=== PATIENT | male | born 1945 | race Caucasian/White ===

== ENCOUNTER → 2016-09-29 | Outpatient (CLI) | payer MEDICARE ==
[~2016-09-29] MED LIST: ADVAIR 250-501 EACH INH; ALLEGRA180 MG PO; AMARYL2 MG PO; DELTASONE10 MG PO; FLOMAX0.4 MG PO; GLUCOPHAGE500 MG PO; LASIX40 MG PO; LEVOCETIRIZINE D5 MG PO; MOBIC7.5 MG PO; NORCO 5-325 TA1 EACH PO; OXYGEN M-15 INH; PRAVACHOL40 MG PO; PRILOSEC OTC20 MG PO; PROSCAR5 MG PO; PROVENTIL HFA6.7 GM INH; RANEXA1000 MG PO; TRIAMCINOLONE454 GM TOP; XARELTO20 MG PO; ZOFRAN4 MG PO; ZOLOFT100 MG PO
== END | disposition disaster alternative care site (69) ==
LOC: GAMB 13:15
DX: R06.9 Unspecified abnormalities of breathing (principal); I10 Essential (primary) hypertension; J45.909 Unspecified asthma, uncomplicated; Z79.52 Long term (current) use of systemic steroids; Z79.82 Long term (current) use of aspirin; Z79.899 Other long term (current) drug therapy; Z88.6 Allergy status to analgesic agent
CPT/HCPCS: A0422; A0425; A0427; J2405; J2930

== ENCOUNTER → 2016-10-29 | Outpatient (CLI) | payer MEDICARE, OTHER ==
--- NOTE | ~2016-10-29 | CON ---
PATIENT'S NAME: VASU CHRISTOPHER [facility] AGE: 71 Y [address] ROOM: [place] [address] LOCATION: GETS ADMIT DATE: 10/29/2016 Consultation DISCHARGE DATE: FAMILY PHYSICIAN: Aram Lira MD ATTENDING PHYSICIAN: Robson Bell DATE OF CONSULTATION: 10/29/2016 Urodynamic Interpretation. HISTORY: Vasu is seen in followup of his recent diagnosis of acute renal failure secondary to chronic urinary retention. He had obstructive nephropathy. He had 1900 mL in his bladder at the time of catheter placement. He has been left to catheter drainage. He presents at this time for urodynamic testing. Sensation appears to be intact upon filling. He felt like he had to void at 361 mL of filling on his cystometrogram. There were no obvious uninhibited contractions. As far as his uroflow was concerned, he appeared to leak around the catheter. He generated low pressures. He was able to demonstrate a small amount of uroflow with very low detrusor pressures. We will discuss continuous catheter drainage versus self intermittent catheterization. We will also evaluate for the possibility of transurethral resection, but I suspect, based on the severity of his presentation and his current urodynamic studies, that he will not do well with that. Specifically, when he was admitted, he had a creatinine of 8.6. He has multiple other risk factors for chronic renal insufficiency. However, with continuous catheter drainage, his creatinine dropped to 1.39. IMPRESSION: Hypotonic bladder with chronic retention. PLAN: As above. ROBSON BELL MD [facility]/modl PATIENT'S NAME: VASU CHRISTOPHER [facility] AGE: 71 Y [address] ROOM: [place] [address] LOCATION: GETS ADMIT DATE: 10/29/2016 Consultation DISCHARGE DATE: FAMILY PHYSICIAN: Aram Lira MD ATTENDING PHYSICIAN: Robson Bell /[id number] CC: Aram Lira MD d: 11/01/16 1855 t: 11/02/16 1024, CONSULTATION REPORT
== END | disposition disaster alternative care site (69) ==
LOC: GETS 07:43
PROC: 4A0D7BZ Measurement of Urinary Pressure, Via Natural or Artificial Opening (ICD-10-PCS; principal; 2016-10-29)
PROC: 4A0 Measurement and Monitoring, Physiological Systems, Measurement (ICD-10-PCS; principal; 2016-10-29)
DX: N31.2 Flaccid neuropathic bladder, not elsewhere classified (principal); R33.8 Other retention of urine

== ENCOUNTER 2016-11-08 11:32 | Observation (INO) | payer MEDICARE, OTHER ==
[~2016-11-08] VITALS: Ht 188 cm; Wt 133.0 kg
--- NOTE | ~2016-11-08 | CON ---
PATIENT'S NAME: ANUPAM CHRISTOPHER [facility] AGE: 71 Y [address] ROOM: [place] [address] LOCATION: [facility] [place] ADMIT DATE: 11/08/2016 Consultation DISCHARGE DATE: FAMILY PHYSICIAN: Aram Lira MD ATTENDING PHYSICIAN: Robson Louis DATE OF CONSULTATION: 11/08/2016 REFERRING PHYSICIAN: BETSY WHITE MD CHIEF COMPLAINT/REASON FOR CONSULTATION: Medical management following cystoscopy with TURP. HISTORY OF PRESENTING ILLNESS: This 71-year-old white male with previous history of diabetes mellitus type 2 and hypertension was admitted to [facility] today by Dr. Louis for planned cystoscopy and TURP. This was performed, secondary to hypotonic bladder with chronic retention. Postoperatively, he was transferred to the floor, and I have been asked to assist in medical management. Currently, he reports feeling "good." He does complain of a little bit of tenderness in the left groin, but relates that it is tolerable. He denies fevers, chills, or sweats. He denies headaches and denies any nausea. He denies chest pain or significant shortness of breath, and no abdominal pain. He does report feeling a little bit "hungry." ALLERGIES: CODEINE CAUSES A RASH. PAST MEDICAL HISTORY: Illnesses: 1. Coronary artery disease. 2. Diabetes mellitus type 2. 3. Essential hypertension. 4. Degenerative disk disease of the lumbar spine. 5. Asthma, intrinsic. 6. Depression. 7. Developmental delay. 8. Chronic kidney disease, stage 3. 9. Moderate protein-calorie malnutrition. 10. Renal artery stenosis. CURRENT MEDICATIONS: 1. Metformin 500 mg p.o. b.i.d. 2. Albuterol HFA 2 puffs p.o. q.4 hours p.r.n. shortness of breath. 3. Aga 180 mg p.o. daily. PATIENT'S NAME: ANUPAM CHRISTOPHER [facility] AGE: 71 Y [address] ROOM: [place] [address] LOCATION: [facility] [place] ADMIT DATE: 11/08/2016 Consultation DISCHARGE DATE: FAMILY PHYSICIAN: Aram Lira MD ATTENDING PHYSICIAN: Robson Louis 4. Proscar 5 mg p.o. daily. 5. Advair 250/50 one puff p.o. b.i.d. 6. Amaryl 2 mg p.o. q.a.m. 7. Levocetirizine 5 mg p.o. q.h.s. 8. Omeprazole 20 mg p.o. q.a.m. 9. Pravastatin 40 mg p.o. q.h.s. 10. Prednisone 10 mg p.o. daily. 11. Ranexa 1000 mg p.o. b.i.d. 12. Xarelto 20 mg p.o. daily (on hold). 13. Zoloft 100 mg p.o. q.h.s. 14. Flomax 0.4 mg p.o. q.h.s. FAMILY HISTORY: Significant for emphysema in his father. Father also suffered from heart disease. Mother had diabetes. SOCIAL HISTORY: He is , lives with his girlfriend here in [place]. He has a 40-plus- pack-year history of smoking tobacco. REVIEW OF SYSTEMS: As per HPI. All other organ systems reviewed and are negative. OBJECTIVE: VITAL SIGNS: Temperature 98.5, pulse 75, respirations 18, blood pressure 157/70. GENERAL: He is anxious, but cooperative, lying in the bed, in no acute distress. He is a little hard of hearing. SKIN: Supple, pink, warm, and dry. No obvious rashes. HEENT: Otherwise, normocephalic. Sclerae nonicteric. Pupils are equal, round, and reactive to light and accommodation. Extraocular movements appear intact. Nasal turbinates normal in appearance. Oropharynx clear. Mucous membranes are pink and moist. Dentition is in poor repair. NECK: Supple, plethoric, and obese. No masses. No adenopathy. No thyromegaly. No JVD. CHEST: Chest wall is symmetrical. HEART: Regular without murmurs. LUNGS: Diminished and coarse with long expiratory phase. No wang wheezes. ABDOMEN: Soft, obese, nontender. Bowel sounds present. No masses or hepatosplenomegaly. : Not done. RECTAL: Not done. EXTREMITIES: Display trace pitting edema. No cyanosis. NEUROLOGIC: Mentation is slow. There are no focal deficits. PATIENT'S NAME: ANUPAM CHRISTOPHER [facility] AGE: 71 Y [address] ROOM: [id number] [place] [address] LOCATION: [facility] [place] ADMIT DATE: 11/08/2016 Consultation DISCHARGE DATE: FAMILY PHYSICIAN: Aram Lira MD ATTENDING PHYSICIAN: Robson Louis LABORATORY AND X-RAY DATA: CBC showed a white blood cell count 8.8, hemoglobin is 12.6, hematocrit 38.1, platelets 164. Chemistries reveal a BUN and creatinine 14 and 1.0, respectively. Sodium and potassium 141 and 3.9, chloride and CO2 are 105 and 31, calcium is 8.4, AST and ALT 21 and 33, bilirubin is 0.8, glucose was 116. ASSESSMENT AND PLAN: 1. Diabetes mellitus type 2. We will hold the metformin and manage with Accu-Cheks and sliding scale insulin while he is inpatient. We will plan to transition back to his home oral hypoglycemic regimen at discharge. 2. Coronary artery disease, currently clinically asymptomatic and stable. Continue with statin therapy and aspirin therapy. 3. Deep venous thrombosis with history of pulmonary embolism (recent). Historically stable on Xarelto. Xarelto is currently on hold. We will plan to resume when feasible and when okay with Dr. Louis. 4. Essential hypertension. Suboptimal control. We will monitor the trend and make adjustments if necessary. 5. Obstructive sleep apnea by history. He is chronically oxygen-dependent at night. We will plan to continue with supplemental oxygen and encourage good pulmonary hygiene. 6. Renal artery stenosis. His renal function is fairly well preserved. We will monitor. 7. Moderate protein-calorie malnutrition. Encourage balanced dietary intake. 8. Morbid obesity. We will need to work on some long-term strategies for weight loss including calorie reduction, increased exercise, etc. 9. Deep venous thrombosis prophylaxis. We will follow the VTE protocol. 10. Hypotonic bladder with urinary retention, status post cystoscopy and TURP. Clinically stable. Continue continuous bladder irrigation and follow up by Urology. MD SARIKA GARCIA/aparna /[id number] d: 11/09/16313 t: 11/10/162017, CONSULTATION REPORT
--- NOTE | ~2016-11-08 | OR ---
PATIENT'S NAME: ANUPAM CHRISTOPHER [facility] AGE: 71 Y [address] ROOM: [address] [address] [place] [facility] [place]: 11/08/2016 OR/Procedure Report DISCHARGE DATE: FAMILY PHYSICIAN: Aram Lira MD ATTENDING PHYSICIAN: Robson Bell SURGEON: Robson Bell MD GUEST SERVICE SUPERVISOR: DATE OF PROCEDURE: 11/08/2016 PREOPERATIVE DIAGNOSES: 1. Benign prostatic hypertrophy, bladder obstruction. 2. Urinary retention. 3. Obstructive nephropathy with acute renal failure - resolved. POSTOPERATIVE DIAGNOSES: 1. Benign prostatic hypertrophy, bladder obstruction. 2. Urinary retention. 3. Obstructive nephropathy with acute renal failure - resolved, with pathology pending. PROCEDURES: Cystoscopy and transurethral resection of the prostate. ANESTHESIA: Regional. INDICATION: This is a 71-year-old gentleman, who was admitted last month with acute renal failure. He had associated obstructive nephropathy. He had almost 2 L of residual and a creatinine of 8.6. He has been left to catheter drainage. His creatinine is dropped down nicely. His creatinine is actually 1.0 today with a GFR greater than 60. Importantly, that is with catheter drainage. He underwent outpatient cystoscopy and urodynamic testing. Residual detrusor function is marginal at best. He was counseled regarding intermittent catheterization versus suprapubic tube versus a Berumen versus a transurethral resection. He understands the transurethral resection may not provide enough drainage simply because of the underlying detrusor function. However, he is adamant that he is not going to have a suprapubic tube. He has been wearing a catheter and has urethral erosion. He is not reliable for self intermittent catheterization. Per his preference, we are going to go ahead and open up his prostatic urethra and hopefully he will have enough residual function to empty well enough to preserve his renal function. It is encouraging that his renal function bounce back well. He has multiple other risk factors including lvo-tylyhzh-[id number] diabetes, coronary artery disease, history of DVTs and PEs, etc. PROCEDURE IN DETAIL: Having obtained his informed consent, the patient was taken to the operating room. He was prepped and draped sterilely and in PATIENT'S NAME: ANUPAM CHRISTOPHER [facility] AGE: 71 Y [address] ROOM: [address] [address] [place] [facility] [place]: 11/08/2016 OR/Procedure Report DISCHARGE DATE: FAMILY PHYSICIAN: Aram Lira MD ATTENDING PHYSICIAN: Robson Bell lithotomy position. A spinal block was placed. A resectoscope was placed. He has previously undergone the diagnostic cystoscopy. Bladder examination is as previous. He has some chronic catheter changes. He has cellule and small diverticula formation from his chronic outlet obstruction. Orifices are close to, but not dangerously intimate with the middle lobe. I started with the loop resection. He has a history of an elevated PSA. With all of his comorbidities, prostate cancer should not represent a significant clinical threat to him, but we will get some tissue for pathology. I took down his middle lobe. We then worked out on the lateral lobes. Those chips were all evacuated. I then switched to a button electrode and further button vaporized his prostate. At the conclusion, we have him opened up nicely. We have good hemostasis. A 24-Persian 3-way and a B and O suppository were placed. The case was concluded. The patient tolerated the procedure well. Blood loss was less than 50 mL. The above-noted specimens were sent. The patient returned to recovery awake and stable condition. ROBSON BELL MD [facility]/modl /[id number] CC: MD Gokul Beltre MD d: 11/08/16 2218 t: 11/21/16 1302, OPERATIVE SUMMARY
--- NOTE | ~2016-11-08 | HP ---
PATIENT'S NAME: VASU CHRISTOPHER [facility] AGE: 71 Y [address] ROOM: [place] [address] LOCATION: [facility] ADMIT DATE: 11/08/2016 History & Physical DISCHARGE DATE: FAMILY PHYSICIAN: Aram Lira MD ATTENDING PHYSICIAN: Robson Bell DATE OF SERVICE: 11/08/2016 CHIEF COMPLAINT: Urinary retention. HISTORY OF PRESENT ILLNESS: This is a 71-year-old gentleman admitted last month with acute renal failure. He had obstructive nephropathy. He had almost 2 L of residual and a creatinine of 8.6. He was left to catheter drainage. His creatinine dropped down to 1.39. He had a CT scan which demonstrated some mild dilation and a thickened bladder wall. He has a remote history of BPH and an elevated PSA. I did a biopsy on his prostate over 10 years ago, and he was supposed to be on combination therapy at that time. Prostate volume at that time was approximately 52 mL. He underwent cystoscopy and urodynamic testing. Residual detrusor function is an issue. Vasu and his significant other understand that we cannot guarantee that he will be able to empty his bladder well enough after TUR. Even if we relieve the obstruction, his residual detrusor function may be inadequate. However, he is adamant against self intermittent catheterization. He absolutely refuses a suprapubic tube. He does not want to continue with his Berumen catheter. Therefore, he presents today for cystoscopy, transurethral resection, and vaporization of his prostate with the understanding that he may still end up needing a catheter. He understands we need to protect his kidney function. PAST MEDICAL HISTORY: He had the prior prostate biopsy. Based on his comorbidities, prostate cancer represents minimal threat to him at this point. We will have some tissue for analysis. He has had a history of DVT, asthma, diabetes, and coronary artery disease. MEDICATIONS: He is on multiple medications. His Xarelto has been on hold. ALLERGIES: CODEINE. REVIEW OF SYSTEMS: PATIENT'S NAME: VASU CHRISTOPHER [facility] AGE: 71 Y [address] ROOM: [place] [address] LOCATION: [facility] ADMIT DATE: 11/08/2016 History & Physical DISCHARGE DATE: FAMILY PHYSICIAN: Aram Lira MD ATTENDING PHYSICIAN: Robson Bell He has had some itching as well as arthritic complaints. He has had the urinary retention. He has chronic wheezing. He denies any chest pain. SOCIAL HISTORY: He is retired. He lives here in [place]. As mentioned, he does have a significant other. He has a remote history of smoking. He does not drink. PHYSICAL EXAMINATION: GENERAL: Vasu appears his usual self. He is somewhat unkempt. VITAL SIGNS: Blood pressure 136/76 with a pulse of 82. He 6 feet 2 inches and 283 pounds. HEART: Currently, regular. LUNGS: Coarse. ABDOMEN: Remarkable for obesity. GENITOURINARY: Exam reveals his indwelling Berumen catheter and is otherwise as noted above with his cystoscopy and urodynamics. EXTREMITIES: No clubbing, cyanosis, or edema. IMPRESSION: Chronic urinary retention with obstructive nephropathy with underlying benign prostatic hypertrophy and bladder outlet obstruction. PLAN: Cystoscopy and transurethral resection of prostate. The patient understands the plan as well as the attendant risks and benefits. Importantly, and as stressed above, he understands that this may not provide adequate emptying and he still may have to consider some type of catheter drainage. He has his questions answered, and he wishes to proceed. ROBSON BELL MD [facility]/modl /[id number] CC: Aram Lira MD D: [id number] T: 300 HISTORY & PHYSICAL
[~2016-11-08 11:32] MED LIST changes: -LASIX40 MG PO; -MOBIC7.5 MG PO; -NORCO 5-325 TA1 EACH PO; -TRIAMCINOLONE454 GM TOP; -ZOFRAN4 MG PO
[2016-11-08 12:24] LABS: BASOPHIL # 0.1 K/uL (0.0-0.2); BASOPHIL % 0.6 %; EOSINOPHIL # 0.3 K/uL (0.0-0.5); EOSINOPHIL % 3.5 %; HEMATOCRIT 38.1 % (37.0-53.0); HEMOGLOBIN 12.6 g/dL (11.0-16.0); IMMATURE GRANULOCYTE # 0.1 K/uL (0.0-0.3); IMMATURE GRANULOCYTE % 0.8 %; LYMPHOCYTE # 0.8 K/uL (0.8-4.0); MCH 31.4 pg (27.0-34.0); MCHC 33.1 gm/dL (32.0-36.5); MONOCYTE # 0.8 K/uL (0.0-1.0); MONOCYTE % 8.7 %; MPV 9.7 fl (9.4-12.4); NEUTROPHIL # (ANC) 6.8 K/uL (1.4-9.0); NEUTROPHIL % 77.4 %; NRBC % 0 /100WBC (0-0.00); PLATELET COUNT 164 K/uL (150-450); RBC 4.01 M/uL (3.50-5.50); RDW-CV 13.7 % (11.9-14.6); WBC 8.8 K/uL (4.0-11.0)
[2016-11-08 12:39] LABS: ALBUMIN 3.2 gm/dL (3.5-5.0); ALK PHOS 50 IU/L (33-138); ALT 33 IU/L (12-78); ANION GAP 8.9 (10.0-19.0); AST 21 IU/L (10-40); BLOOD UREA NITROGEN 14 mg/dL (6-24); CALCIUM 8.4 mg/dL (8.5-10.5); CHLORIDE 105 mMol/L (96-110); CO2 31 mMol/L (22-32); ESTIMATED GFR (MDRD EQUATION) > 60; POTASSIUM 3.9 mMol/L (3.7-5.1); SODIUM 141 mMol/L (135-145); TOTAL BILIRUBIN 0.8 mg/dL (0.0-1.5); TOTAL PROTEIN 6.5 g/dL (6.0-8.4)
--- NOTE | 2016-11-08 16:52 | NUR ---
CBI IN PACU = 1200 ML IN. 1200 ML URINE OUTPUT.
--- NOTE | 2016-11-09 01:23 | NUR ---
Cont on CBI post TURP. Urine pink in color with small blood clots. VSS. Denies pain. Did have some blood around urinary meatus at HS. Cath cares done and neosporin applied as ordered. Cont on 1/2 NS at 100mls/hr. Wears 3L O2 via NC at HS per home settings. Dr. Herrera rounded on patient last HS. Dc'd Metformin. Started on sliding scale insulin. BS at HS 251. Given 6 units of novolog. Cont on bedrest per admission orders.
[2016-11-09 05:03] LABS: BASOPHIL % 0.3 %; EOSINOPHIL # 0.2 K/uL (0.0-0.5); EOSINOPHIL % 2.4 %; HEMATOCRIT 34.2 % (37.0-53.0); IMMATURE GRANULOCYTE # 0.1 K/uL (0.0-0.3); IMMATURE GRANULOCYTE % 0.9 %; LYMPHOCYTE # 0.6 K/uL (0.8-4.0); LYMPHOCYTE % 6.7 %; MCH 30.8 pg (27.0-34.0); MCHC 32.2 gm/dL (32.0-36.5); MCV 95.8 fl (83.0-98.0); MONOCYTE # 0.7 K/uL (0.0-1.0); MONOCYTE % 7.8 %; MPV 10.1 fl (9.4-12.4); NEUTROPHIL # (ANC) 7.6 K/uL (1.4-9.0); NEUTROPHIL % 81.9 %; NRBC % 0 /100WBC (0-0.00); PLATELET COUNT 161 K/uL (150-450); RBC 3.57 M/uL (3.50-5.50); RDW-CV 13.7 % (11.9-14.6); WBC 9.2 K/uL (4.0-11.0)
[2016-11-09 05:20] LABS: ANION GAP 9.1 (10.0-19.0); BLOOD UREA NITROGEN 15 mg/dL (6-24); CALCIUM 8.1 mg/dL (8.5-10.5); CHLORIDE 105 mMol/L (96-110); CO2 30 mMol/L (22-32); CREATININE 0.9 mg/dL (0.6-1.3); ESTIMATED GFR (MDRD EQUATION) > 60; SODIUM 140 mMol/L (135-145)
[2016-11-09 05:21] LABS: POTASSIUM 4.1 mMol/L (3.7-5.1)
--- NOTE | 2016-11-09 15:43 | NUR ---
Significant event: CBI continues at a slow rate urine pale pink to clear. Denies pain. Accuchecks 103 and 108. No insulin required as per order.
[2016-11-09] MEDS ORDERED: LASIX40 MG PO (18:21)
[2016-11-09] MEDS ORDERED: MOBIC7.5 MG PO (18:21)
[2016-11-09] MEDS ORDERED: TRIAMCINOLONE454 GM TOP (18:23)
[2016-11-09] MEDS ORDERED: NORCO 5-325 TA1 EACH PO (18:26)
--- NOTE | 2016-11-10 04:54 | NUR ---
Significant Event: Sleeping well tonight. Afebrile, all other VSS. Denies pain. CBI continues at slow rate, urine light yellow in color. Up to chair with 1 assist. Drinking well, eating without nausea or vomting. PIV patent and saline locked. HS accucheck was 152 and 2 units Novolog given per SS. COWLITZ bilaterally. Pleasant and cooperative with cares. Follow up:
[2016-11-10] MEDS ORDERED: ZOFRAN4 MG PO (15:18)
--- NOTE | 2016-11-10 16:14 | NUR ---
Afebrile, VSS. CBI and Cath dc'd this am @ 0915. Patient reported feeling bloated @ 1230 and unable to void. 250ml emesis around 1300. Patient given Zofran at 1320. Patient did not c/o pain at all during stay. patient bladder scanned around 1300, reading 374ml residual. Berumen placed at 1400 per order. Patient's urine a dark yellow with small clots and sedimentation present. Patient dismissed from hospital at 1550 after being educated on at home cath cares.
--- NOTE | 2016-11-10 18:48 | NUR ---
ASSESSMENT FINDINGS AND CHARTING BY Susanne CARD HAVE BEEN REVIEWED AND AGREE WITH FINDINGS.
== END 2016-11-10 15:50 | disposition disaster alternative care site (69) ==
LOC: GPOC 11:32 → GMSU 11:32 → GPOC 15:01 → GMSU 11-10 15:50
PROVIDERS: ADMIT Urology
PROC: 0VB08ZZ Excision of Prostate, Via Natural or Artificial Opening Endoscopic (ICD-10-PCS; principal; 2016-11-08)
DX: N13.8 Other obstructive and reflux uropathy (principal); R33.8 Other retention of urine; M19.90 Unspecified osteoarthritis, unspecified site; J45.909 Unspecified asthma, uncomplicated; K21.9 Gastro-esophageal reflux disease without esophagitis; I25.10 Atherosclerotic heart disease of native coronary artery without angina pectoris; E11.22 Type 2 diabetes mellitus with diabetic chronic kidney disease; I12.9 Hypertensive chronic kidney disease with stage 1 through stage 4 chronic kidney disease, or unspecified chronic kidney disease; N18.3 Chronic kidney disease, stage 3 (moderate); M51.36 Other intervertebral disc degeneration, lumbar region; F32.9 Major depressive disorder, single episode, unspecified; R62.50 Unspecified lack of expected normal physiological development in childhood; E44.0 Moderate protein-calorie malnutrition; I70.1 Atherosclerosis of renal artery; G47.33 Obstructive sleep apnea (adult) (pediatric); E66.01 Morbid (severe) obesity due to excess calories; Z68.38 Body mass index [BMI] 38.0-38.9, adult; Z86.711 Personal history of pulmonary embolism; Z86.718 Personal history of other venous thrombosis and embolism; Z79.899 Other long term (current) drug therapy; Z98.890 Other specified postprocedural states; Z88.5 Allergy status to narcotic agent
CPT/HCPCS: G0378; J1720; J2001; J2405; J7030; J7512

== ENCOUNTER 2016-11-20 13:20 | Emergency (ER) | payer MEDICARE, OTHER ==
--- NOTE | ~2016-11-20 | ER ---
PATIENT'S NAME: [facility] AGE: 71 Y [address] ROOM: [place] [address] LOCATION: [facility] ADMIT DATE: 11/20/2016 ER/Outpatient Report DISCHARGE DATE: 11/20/2016 FAMILY PHYSICIAN: Aram Lira MD ATTENDING PHYSICIAN: Leo Pyle Time of Arrival: 1340 hours. Time of Evaluation: 1340 hours. CHIEF COMPLAINT: Blood in urine. HISTORY OF PRESENT ILLNESS: The patient states today he has had bright red blood from his urine. States he had blood in his urine since the catheter was removed on 11/17/2016, but it had cleared up within 24 hours and then today returned as a bright red blood. He is feeling weak and slightly dizzy. He has some mild discomfort when he urinates but urinating without any trouble, has not felt feverish or chilled, did have a normal bowel movement today. He has not been nauseated. No vomiting. ALLERGIES: CODEINE. MEDICATIONS: On the chart and reviewed by me. PAST MEDICAL HISTORY: Urinary retention, BPH, noninsulin dependent diabetes, heart disease, hypertension, asthma, coronary artery disease, pulmonary emboli. PAST SURGICAL HISTORY: Heart cath with stents, prostate surgery. He had prostate surgery in October according to his significant other and he has been having problems urinating off and on ever since. Has had to have a catheter off and on since surgery. SOCIAL HISTORY: Denies use of tobacco, drugs, or alcohol. REVIEW OF SYSTEMS: All negative other than those mentioned in the HPI. PHYSICAL EXAMINATION: VITAL SIGNS: He weighed 134.1 kg, blood pressure is 115/73, pulse of 80, respirations 18, temperature of 97.5, O2 saturation was 95% on room air. PATIENT'S NAME: [facility] AGE: 71 Y [address] ROOM: [place] [address] LOCATION: [facility] ADMIT DATE: 11/20/2016 ER/Outpatient Report DISCHARGE DATE: 11/20/2016 FAMILY PHYSICIAN: Aram Lira MD ATTENDING PHYSICIAN: Leo Pyle GENERAL: He is awake, alert, and oriented x4. SKIN: [place], warm, and dry. RESPIRATIONS: Even and nonlabored. Lung sounds were clear throughout. HEART: Regular rate and rhythm. ABDOMEN: Soft, nondistended. Bowel sounds are present. LABORATORY DATA AND X-RAYS: Lab work was drawn. CBC shows a white count of 9.7, hemoglobin is 12.2 with hematocrit of 37.1. Chem panel is within normal limits. BUN is 19 with a creatinine of 1.1. GFR 60, lactate was 2.2. Procalcitonin was negative. The patient was able to urinate. Clean-catch UA was sent down, does show 500 leukocytes, negative nitrites, white blood cells were 5 to 10 with negative bacteria. The patient was monitored, did not have any increase in pain or discomfort. He was able to urinate again of 300 mL. The patient was reviewed with Dr. Pyle. IMPRESSION: Hematuria. PLAN: Home, rest, fluids. Continue his current medications. Follow up with Dr. Louis within the next 2 to 3 days or return to the ER if he develops difficulty urinating. He verbalized understanding. ALFREDO SCHMIDT APRN FOR DO ROXANNE SAPP/aparna /[id number] d: 11/20/162199 t: 11/24/16 0649, OUTPATIENT REPORT
[~2016-11-20 13:20] MED LIST changes: +LASIX40 MG PO; +MOBIC7.5 MG PO; +NORCO 5-325 TA1 EACH PO; +TRIAMCINOLONE454 GM TOP; +ZOFRAN4 MG PO
[2016-11-20 14:28] LABS: BASOPHIL # 0.1 K/uL (0.0-0.2); BASOPHIL % 0.5 %; EOSINOPHIL # 0.2 K/uL (0.0-0.5); EOSINOPHIL % 2.3 %; HEMATOCRIT 37.1 % (37.0-53.0); HEMOGLOBIN 12.2 g/dL (11.0-16.0); IMMATURE GRANULOCYTE # 0.1 K/uL (0.0-0.3); IMMATURE GRANULOCYTE % 1.2 %; LYMPHOCYTE # 0.5 K/uL (0.8-4.0); LYMPHOCYTE % 5.1 %; MCH 31.1 pg (27.0-34.0); MCHC 32.9 gm/dL (32.0-36.5); MCV 94.6 fl (83.0-98.0); MONOCYTE # 0.7 K/uL (0.0-1.0); MONOCYTE % 6.9 %; MPV 9.6 fl (9.4-12.4); NEUTROPHIL # (ANC) 8.2 K/uL (1.4-9.0); NRBC % 0 /100WBC (0-0.00); RBC 3.92 M/uL (3.50-5.50); RDW-CV 13.9 % (11.9-14.6); WBC 9.7 K/uL (4.0-11.0)
[2016-11-20 14:30] LABS: BILIRUBIN URINE NEGATIVE (NEGATIVE); BLOOD URINE 250 /UL (NEGATIVE); COLOR URINE RED (YELLOW); GLUCOSE URINE NEGATIVE (NEGATIVE); KETONE URINE NEGATIVE (NEGATIVE); LEUKOCYTES URINE 500 /UL (NEGATIVE); NITRITE URINE NEGATIVE (NEGATIVE); PROTEIN URINE 100 mg/dL (NEGATIVE); TURBIDITY URINE 3+ (CLEAR); UROBILINOGEN URINE NORMAL (NORMAL)
[2016-11-20 14:33] LABS: PLATELET COUNT 202 K/uL (150-450)
[2016-11-20 14:45] LABS: INR - (THERAPEUTIC) 1.08 (0.92-1.07); PROTIME 11.4 SECONDS (9.8-11.4); PTT 29 SECONDS (25-32)
[2016-11-20 14:50] LABS: ALBUMIN 3.3 gm/dL (3.5-5.0); ALK PHOS 53 IU/L (33-138); ALT 29 IU/L (12-78); ANION GAP 11.1 (10.0-19.0); AST 19 IU/L (10-40); BLOOD UREA NITROGEN 19 mg/dL (6-24); CALCIUM 8.5 mg/dL (8.5-10.5); CHLORIDE 101 mMol/L (96-110); CO2 32 mMol/L (22-32); CREATININE 1.1 mg/dL (0.6-1.3); ESTIMATED GFR (MDRD EQUATION) > 60; POTASSIUM 4.1 mMol/L (3.7-5.1); SODIUM 140 mMol/L (135-145); TOTAL PROTEIN 6.2 g/dL (6.0-8.4)
[2016-11-20 14:51] LABS: EPITHELIAL URINE RARE #/HPF (NEGATIVE); RBC URINE PACKED FIELD #/HPF (NEGATIVE)
[2016-11-20 14:52] LABS: TOTAL BILIRUBIN 0.6 mg/dL (0.0-1.5)
[2016-11-20 14:52] LABS: BACTERIA URINE NEGATIVE (NEGATIVE)
== END 2016-11-20 15:30 | disposition disaster alternative care site (69) ==
LOC: GMED 13:20
PROVIDERS: Nurse Practitioner Family
DX: R31.9 Hematuria, unspecified (principal); N40.0 Benign prostatic hyperplasia without lower urinary tract symptoms; E11.9 Type 2 diabetes mellitus without complications; I11.9 Hypertensive heart disease without heart failure; I51.9 Heart disease, unspecified; I25.10 Atherosclerotic heart disease of native coronary artery without angina pectoris; R33.9 Retention of urine, unspecified; Z79.01 Long term (current) use of anticoagulants; Z79.84 Long term (current) use of oral hypoglycemic drugs; Z79.51 Long term (current) use of inhaled steroids; Z88.5 Allergy status to narcotic agent; Z95.828 Presence of other vascular implants and grafts; Z98.890 Other specified postprocedural states